=== PATIENT | male | born 1950 | race African-American/Black ===

== ENCOUNTER 2018-07-16 13:40 | Emergency (ER) | payer MEDICARE, OTHER ==
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
[2018-07-16] MEDS ORDERED: DIPH/PERTUSS(ACELL)/TETANUS VAC/PF 0.5 ML SYR (>=10YO) IM ONE (16:02)
[2018-07-16] MEDS ORDERED: LIDOCAINE 1% INJ-PF (10 MG/ML) 30 ML SDV INJ ONE (16:02)
[2018-07-16] MEDS ORDERED: CEPHALEXIN 500 MG CAPSULE PO ONE (16:05)
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
[2018-07-16 16:59] VITALS: BP 148/86
== END 2018-07-16 17:08 | disposition home or self-care (01) ==
LOC: ER 13:40
PROC: 0HQMXZZ Repair Right Foot Skin, External Approach (ICD-10-PCS; principal; 2018-07-16)
DX: S91.311A Laceration without foreign body, right foot, initial encounter (principal); M79.671 Pain in right foot; X06.3XXA Exposure to melting of other clothing and apparel, initial encounter; W22.8XXA Striking against or struck by other objects, initial encounter; Y93.H9 Activity, other involving exterior property and land maintenance, building and construction; Z79.899 Other long term (current) drug therapy; I10 Essential (primary) hypertension
CPT/HCPCS: 99283; 90471; 73630; 90715; 12002; A9270